=== PATIENT | male | born 1955 | race Caucasian/White ===

== ENCOUNTER 2022-11-04 10:30 | Emergency (ER) | payer OTHER ==
[~2022-11-04] VITALS: Ht 165.1 cm; Wt 87.5 kg
[2022-11-04 10:31] VITALS: BP 141/78; PULSE 82; RESP 16; TEMP 97.2; O2SAT 96
[2022-11-04 10:45] VITALS: O2SAT 97
[2022-11-04] MEDS ORDERED: NACL 0.9% 1,000 ML IV ONE (10:45)
[2022-11-04 12:45] VITALS: BP 108/64; PULSE 75; RESP 18; TEMP 97.3; O2SAT 97
== END 2022-11-04 12:46 | disposition home or self-care (01) ==
LOC: MED 10:30
DX: E86.0 Dehydration (principal); R42 Dizziness and giddiness; E11.9 Type 2 diabetes mellitus without complications; I10 Essential (primary) hypertension; Z98.890 Other specified postprocedural states
CPT/HCPCS: 96360; 99283; J7030